=== PATIENT | female | born 2000 | race Caucasian/White ===

== ENCOUNTER 2022-03-02 18:31 | Emergency (ER) | payer MEDICAID ==
[~2022-03-02] VITALS: Ht 162.6 cm; Wt 63.5 kg
--- NOTE | 2022-03-02 19:54 | NUR ---
Patient discharged to home in stable condition. Written and verbal after care instructions given. Patient verbalizes understanding of instructions. Stressed follow up or return to ER for worsening s/s. Patient is a/ox4, NAD noted. Patient is able to walk with steady gait
[2022-03-02 19:56] VITALS: BP 110/76
== END 2022-03-02 19:50 | disposition home or self-care (01) ==
LOC: ER 18:39
DX: K59.00 Constipation, unspecified (principal); R19.7 Diarrhea, unspecified
CPT/HCPCS: A4663